=== PATIENT | female | born 1995 | race Caucasian/White ===

== ENCOUNTER 2020-03-23 08:37 | Emergency (ER) | payer BC, SELFPAY ==
[2020-03-23 08:41] VITALS: BP 184/106; PULSE 119; RESP 16; TEMP 36.7; O2SAT 99; BMI 40.3
--- NOTE | 2020-03-23 08:59 | ED_ITS ---
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 Patient did not reported at work. Patient said the first day she was fine and then the next day started hurting worse and is progressively worsened and she continued to work for a week and and made it worse. Said it hurts for her to bend twist left role in bed get out of bed. Pain she said radiates down her right leg to her mid thigh. [facility] said her right leg was 2 inches shorter is told her hip was out of place and put her hip back in place. Patient did ambulate the whole time without difficulty. 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) Onset (ago): day(s) Timing: constant and progressively worsening Severity: moderate Pain scale (0-10): 6 Similar Symptoms Previously: No Quality: burning and sharp Radiation: right upper leg Exacerbating factors: movement, sitting upright and walking Relieving factors: immobilization Context: while lifting and turning/twisting Associated symptoms: Reports no associated symptoms; Deny abdominal pain, chills, fever(s), nausea or vomiting Treatments prior to arrival: other (Chiropractic) Work related injury: No Review of Systems Const: Denies: fever, chills or body aches Eyes: Denies: change in vision or blurry vision ENMT: Denies: throat pain or nasal congestion Card: Reports: other (Hypertension); Denies: chest pain or shortness of breath on exertion Resp: Denies: shortness of breath, productive cough or non-productive cough GI: Denies: abdominal pain, nausea or vomiting Musc: Reports: back pain; Denies: extremity pain Skin/Breast: Denies: rash Neuro: Denies: headache Psych: Denies: anxiety or depression Sabino/Lymph: Denies: easy bruising PFSH ED PFSH: Social History Smoking and tobacco status: current every day smoker Physical Exam Const: COMMON NORMALS: no apparent distress, average body habitus and oriented x3 HENMT: COMMON NORMALS: normocephalic HEAD & SCALP: normal to inspection and normocephalic FACE & SINUS: normal facial exam Eye: COMMON NORMALS: conjunctivae normal GENERAL EYE: normal appearance of both eyes CONJUNCTIVA: Yes conjunctivae normal Neck/C-Spine: COMMON NORMALS: no JVD Chest: COMMONS NORMALS: inspection of chest normal Resp: COMMON NORMALS: normal respiratory effort and clear to auscultation bilaterally AUSCULTATION: clear to auscultation bilaterally Cardio: COMMON NORMALS: no JVD, regular rate and regular rhythm RATE: regular rate RHYTHM: regular rhythm GI: COMMON NORMALS: normal to inspection, nondistended, normoactive bowel sounds : COMMON NORMALS: Yes no CVA tenderness BLADDER/KIDNEY EXAM: Yes no CVA tenderness Back/Pelvis: COMMON NORMALS: no CVA tenderness THORACIC SPINE/UPPER BACK: Yes normal to inspection LUMBAR SPINE/LOWER BACK: Yes normal to inspection and Yes straight leg raise positive right Straight leg raise positive details right: other (Positive with cross leg raise and bilateral leg raise to at 30 degrees) PELVIS: Yes other (Neuro is intact distal any radiates down to mid thigh long sciatic) SACROILIAC JOINTS: Yes SI joints normal COCCYX: other (Neuro is intact distal any radiates down to mid thigh long sciatic) Extremity: COMMON NORMALS: normal to inspection and full ROM Neuro: COMMON NORMALS: oriented x3 Course Vital Signs: Vital signs: Vital Signs Temperature 98.1 F 03/23/20 08:41 Pulse Rate 119 H 03/23/20 08:41 Respiratory Rate 16 03/23/20 08:41 Blood Pressure 184/106 03/23/20 08:41 Pulse Oximetry 99 03/23/20 08:41 Discharge Plan Discharge Patient Disposition: Home, Self-Care Clinical Impression: Strain of lumbar region Qualifiers: Encounter type: initial encounter Qualified Code(s): S39.012A - Strain of muscle, fascia and tendon of lower back, initial encounter Condition: Stable Prescriptions: New Medrol (Melquiades) 4 mg tablets,dose pack See Rx Instructions .ROUTE .COMPLEX Qty: 21 RF: 0 cyclobenzaprine 5 mg tablet 5 mg PO TID PRN (Reason: muscle spasm) Qty: 10 RF: 0 Discharge Orders: Discharge Order (Routine); Ordered 03/23/20 Ordered By: Sky Pritchett Referrals: Amadeo Clifford FNP-C [Primary Care Provider] - Chapin Yun APN [Family Provider] - Discharge Diet: Usual diet Discharge Activity: Increase activity as tolerated Patient Instructions: Low Back Strain (ED), Core Strengthening Exercises (GEN) Activity Restrictions/Additional Instructions: Follow-up with medical provider as directed. Take medications as prescribed. Return to the ER or your medical provider if condition worsens. Please read and understand discharge instructions. If any questions ask please. 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
[2020-03-23 09:25] VITALS: RESP 16; O2SAT 98
== END 2020-03-23 09:25 | disposition home or self-care (01) ==
LOC: ER 09:03
PROVIDERS: Emergency Provider Nurse Practitioner Family; Family Provider Nurse Practitioner Family; PCP Nurse Practitioner
DX: S39.012A Strain of muscle, fascia and tendon of lower back, initial encounter (principal); X50.9XXA Other and unspecified overexertion or strenuous movements or postures, initial encounter; Y93.F2 Activity, caregiving, lifting; F17.210 Nicotine dependence, cigarettes, uncomplicated
CPT/HCPCS: 12345; 99281; 99282

== ENCOUNTER 2020-04-03 12:36 | Outpatient (RCR) | payer OTHER, SELFPAY | END 2020-04-19 23:59 | disposition home or self-care (01) | LOC: SPT 12:36 | PROVIDERS: PCP Nurse Practitioner Family; Referring Provider Family Medicine; Visit Provider Family Medicine | DX: S33.6XXD Sprain of sacroiliac joint, subsequent encounter (principal); X58.XXXD Exposure to other specified factors, subsequent encounter | CPT/HCPCS: 97110; 97161; G0283 ==

== ENCOUNTER 2020-04-20 06:00 | Outpatient (RCR) | payer OTHER, SELFPAY | END 2020-05-19 23:59 | disposition home or self-care (01) | LOC: SPT 06:00 | PROVIDERS: PCP Nurse Practitioner Family; Referring Provider Family Medicine; Visit Provider Family Medicine | DX: S33.6XXD Sprain of sacroiliac joint, subsequent encounter (principal); X58.XXXD Exposure to other specified factors, subsequent encounter | CPT/HCPCS: 97110; G0283 ==

== ENCOUNTER 2020-05-06 14:25 | Outpatient (CLI) | payer OTHER, SELFPAY ==
--- NOTE | 2020-05-06 14:30 | MRR_ITS ---
PROCEDURE INFORMATION: Exam: MR Lumbar Spine Without Contrast. 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 . . TECHNIQUE: Imaging protocol: Multiplanar magnetic resonance images of the lumbar spine without intravenous contrast. COMPARISON: No relevant prior studies available. FINDINGS: Vertebrae: Unremarkable. Spinal cord: Normal signal. No cord compression. L1-L2: No significant disc disease. No significant spinal canal stenosis. No neural foraminal stenosis. L2-L3: No significant disc disease. No significant spinal canal stenosis. No neural foraminal stenosis. L3-L4: No significant disc disease. No significant spinal canal stenosis. No neural foraminal stenosis. L4-L5: Minimal disc bulge. No significant spinal canal stenosis. No neural foraminal stenosis. L5-S1: No significant disc disease. No significant spinal canal stenosis. No neural foraminal stenosis. Soft tissues: Unremarkable. MR/MR lumbar spine wo con* [id number] IMPRESSION: No acute abnormality.
== END 2020-05-06 14:26 | disposition home or self-care (01) ==
LOC: RADSHAW 14:28
PROVIDERS: PCP Nurse Practitioner Family; Visit Provider Family Medicine
DX: M51.06 Intervertebral disc disorders with myelopathy, lumbar region (principal); M54.5 Low back pain
CPT/HCPCS: 72148

== ENCOUNTER 2021-05-19 14:18 | Inpatient (IN) | payer BC, SELFPAY ==
[2021-05-19 15:42] VITALS: BP 150/84; PULSE 111; RESP 18; TEMP 37; O2SAT 99; BMI 42.5
--- NOTE | 2021-05-19 18:32 | ED_ITS ---
Documented by User: JOSHUA Baird 05/19/21 23:19 HPI - Nausea/Vomiting/Diarrhea General: Chief complaint: Nausea/Vomiting/Diarrhea Stated complaint: NAUSEA/VOMITING Time Seen by Provider: 05/19/21 18:28 History of Present Illness: HPI Narrative: Patient is a 26-year-old female comes to the ED with nausea and vomiting. Patient says symptoms started on Monday. She has not been able to tolerate any p.o. food or fluids since Monday. She says over the last 24 hours she has not really had anything to drink or eat. She denies any bowel movements for the past 3 days. She has some generalized abdominal pain that she describes as a pressure in her abdomen. Denies any fever, chills, chest pain, shortness of breath, diarrhea, blood in the stool, dysuria or hematuria. She denies any current vaginal bleeding and says her last period was 3 months ago but states she has PCOS so her periods are irregular. Associated nausea: Yes Associated symtoms: Reports nausea; Denies change in vision, chest pain, dysuria, fatigue, headache(s) or palpitations Review of Systems Const: Denies: fever(s), chills or fatigue Eyes: Denies: change in vision or eye discomfort ENMT: Denies: throat pain, odynophagia, nasal discharge or nasal congestion Card: Denies: chest pain, palpitations, edema, swelling of feet/ankles, dyspnea on exertion or orthopnea Resp: Denies: dyspnea, productive cough or non-productive cough GI: Reports: abdominal pain (general Pressure), nausea and vomiting; Denies: diarrhea, constipation or hematochezia : Denies: flank pain, dysuria or hematuria Musc: Denies: neck pain, back pain or extremity swelling Skin/Breast: Denies: rash or new lesions Neuro: Denies: headache(s), numbness in extremities or weakness in extremities PFSH ED PFSH: Medical History Anxiety Asthma PCOS (polycystic ovarian syndrome) Surgical History H/O oophorectomy Family History (Updated 05/19/21 @ 23:55 by Lelia Weeks MD) Other Cancer Social History Smoking and tobacco status: current every day smoker Female Reproductive History: Date of last menstrual period: 03/17/21 Physical Exam Const: COMMON NORMALS: no acute distress, patient oriented x3 and alert GENERAL APPEARANCE: cooperative and comfortable NUTRITIONAL APPEARANCE: obese HENMT: COMMON NORMALS: normocephalic HEAD & SCALP: normocephalic MOUTH: moist mucous membranes abnormal Details: parched THROAT: posterior oropharynx normal and uvula midline Eye: COMMON NORMALS: Equal, round and reactive pupils present PUPIL: Yes Equal, round and reactive pupils present Neck/C-Spine: COMMON NORMALS: supple GENERAL: Yes normal visual inspection Resp: COMMON NORMALS: normal respiratory effort, No retractions, No use of accessory muscles and clear to auscultation bilaterally AUSCULTATION: clear to auscultation bilaterally Cardio: COMMON NORMALS: regular rate, regular rhythm, S1 normal heart sound present, S2 normal heart sound present, No gallops present (Cardio), No clicks present (Cardio), No murmurs present (Cardio) and Peripheral pulses 2+ throughout RATE: regular rate RHYTHM: regular rhythm HEART SOUNDS: S1 normal heart sound present and S2 normal heart sound present PERIPHERAL PULSES: Peripheral pulses 2+ throughout GI: COMMON NORMALS: Normal to inspection, nondistended, normoactive bowel sounds present, Soft to palpation and no masses PALPATION: Yes Soft to palpation and Yes Tenderness to palpation present (GI) (Mild generalized tenderness) : COMMON NORMALS: Yes no CVA tenderness BLADDER/KIDNEY EXAM: Yes no CVA tenderness Back/Pelvis: COMMON NORMALS: no CVA tenderness Extremity: COMMON NORMALS: normal to inspection Neuro: COMMON NORMALS: patient oriented x3 and moves all extremities SENSORIUM/ORIENTATION: Yes alert Skin: GENERAL SKIN EXAM: dry skin Course Vital Signs: Vital signs: Vital Signs Temperature 98.2 F 05/20/21 07:34 Pulse Rate 75 05/20/21 07:34 Respiratory Rate 17 05/20/21 07:34 Blood Pressure 122/80 05/20/21 07:34 Pulse Oximetry 96 05/20/21 07:34 MDM - Nausea/Vomiting/Diarrhea MDM Narrative: Medical decision making narrative: Patient is a 26-year-old female comes to the ED with nausea and vomiting. Patient says she has not been able to keep any food or fluids down for the past 3 days. Patient appears nontoxic and is in no acute distress or pain. She has some dry oral mucous membranes and some very mild generalized tenderness of the abdomen. White blood cell count 15.2 and creatinine 3.8. Patient says she has no history of any kidney issues or problems. The rest of CBC CMP and UA were unremarkable. hCG negative. CT of abdomen pelvis showed no acute findings. Patient was given 2 L of IV fluids and Zofran and her nausea improved. I went to talk to Dr. Nunes about patient case and I thought patient should be admitted due to the very elevated creatinine level. He agreed and will be taking over patient care to get patient admitted into the hospital. Lab Data: Attestation: I reviewed the patient's lab results. Labs: Lab Results 05/19/21 05/19/21 05/19/21 Range/Units 17:12 18:20 18:50 WBC 15.2 H (4.0-10.0) 10^3/ uL RBC 5.20 (4.1-5.3) 10^6/u L Hgb 14.6 (11.5-15.3) g/dL Hct 44.6 (37.0-47.0) % MCV 85.8 (81-99) fL MCH 28.1 (28.0-34.0) pg MCHC 32.7 (30.0-36.0) g/dL RDW 13.7 (12.1-15.1) % Plt Count 289 (130-400) 10^3/c mm MPV 11.0 H (7.4-10.4) fL Neut % (Auto) 70.6 % Lymph % (Auto) 22.5 % [place] % (Auto) 5.5 % Eos % (Auto) 0.7 % Baso % (Auto) 0.3 % Neut # (Auto) 10.72 H (1.8-7.7) 10^3/u L Lymph # (Auto) 3.4 (0.8-4.8) 10^3/u L [place] # (Auto) 0.8 (0.2-0.9) 10^3/u L Eos # (Auto) 0.1 (0.0-0.8) 10^3/u L Baso # (Auto) 0.1 (0.0-0.1) 10^3/u L Nucleated RBC % (a uto) 0 % Nucleated RBCs # 0.0 /100WBC Sodium (136-145) mmol/L Potassium (3.5-5.1) mmol/L Chloride (98-107) mmol/L Carbon Dioxide (22-29) mmol/L Anion Gap (5-19) BUN (6-20) mg/dL Creatinine (0.5-0.9) mg/dL GFR Calculation (90-130) mL/min Glucose (65-115) mg/dL Calculated Osmolal ity (285-295) mOsm/k g Lactic Acid (0.5-2.2) mmol/L Calcium (8.5-10.5) mg/dL Total Bilirubin (0.15-1.2) mg/dL AST (0-32) U/L ALT (0-33) U/L Alkaline Phosphata se (35-105) IU/L Total Protein (6.6-8.7) g/dL Albumin (3.5-5.2) g/dL Globulin (1.3-4.6) g/dL Lipase (13-60) U/L HCG, Qual (Negative) Urine Color Yellow (Yellow) Urine Appearance Sl hazy (CLEAR) Urine pH 5 (5-7) Ur Specific Gravit y 1.015 (1.005-1.030) Urine Protein Neg (Negative) Urine Glucose (UA) Norm (Normal) Urine Ketones 1+ H (Negative) Urine Blood Neg (Negative) Urine Nitrate Negative (Negative) Urine Bilirubin Neg (Negative) Urine Urobilinogen Norm (Negative) mg/dL Ur Leukocyte Ambar ase Negative (Negative) Urine RBC 0-4 H (0-2) /hpf Urine WBC 0-4 H (0-5) /hpf Ur Squamous Epith Cells 25-40 H (0-5) /hpf Amorphous Sediment Not Reportable Urine Bacteria None (NONE) /hpf Urine Opiates Scre en Negative (Negative) ng/mL Ur Barbiturates Sc reen Negative (Negative) ng/mL Ur Phencyclidine S crn Negative (Negative) ng/mL Ur Amphetamines Sc reen Negative (Negative) ng/mL U Benzodiazepines Scrn Negative (Negative) ng/mL Urine Cocaine Scre en Negative (Negative) ng/mL U Marijuana (THC) Screen Negative (Negative) ng/mL 05/19/21 05/19/21 05/19/21 Range/Units 18:50 18:50 18:50 WBC (4.0-10.0) 10^3/ uL RBC (4.1-5.3) 10^6/u L Hgb (11.5-15.3) g/dL Hct (37.0-47.0) % MCV (81-99) fL MCH (28.0-34.0) pg MCHC (30.0-36.0) g/dL RDW (12.1-15.1) % Plt Count (130-400) 10^3/c mm MPV (7.4-10.4) fL Neut % (Auto) % Lymph % (Auto) % [place] % (Auto) % Eos % (Auto) % Baso % (Auto) % Neut # (Auto) (1.8-7.7) 10^3/u L Lymph # (Auto) (0.8-4.8) 10^3/u L [place] # (Auto) (0.2-0.9) 10^3/u L Eos # (Auto) (0.0-0.8) 10^3/u L Baso # (Auto) (0.0-0.1) 10^3/u L Nucleated RBC % (a uto) % Nucleated RBCs # /100WBC Sodium 136 (136-145) mmol/L Potassium 4.6 (3.5-5.1) mmol/L Chloride 101 (98-107) mmol/L Carbon Dioxide 21 L (22-29) mmol/L Anion Gap 18.6 (5-19) BUN 31 H (6-20) mg/dL Creatinine 3.8 H (0.5-0.9) mg/dL GFR Calculation 14.1 L (90-130) mL/min Glucose 78 (65-115) mg/dL Calculated Osmolal ity 287 (285-295) mOsm/k g Lactic Acid 1.4 (0.5-2.2) mmol/L Calcium 9.2 (8.5-10.5) mg/dL Total Bilirubin 0.2 (0.15-1.2) mg/dL AST 13 (0-32) U/L ALT 15 (0-33) U/L Alkaline Phosphata se 116 H (35-105) IU/L Total Protein 8.1 (6.6-8.7) g/dL Albumin 4.2 (3.5-5.2) g/dL Globulin 3.9 (1.3-4.6) g/dL Lipase 20 (13-60) U/L HCG, Qual Negative (Negative) Urine Color (Yellow) Urine Appearance (CLEAR) Urine pH (5-7) Ur Specific Gravit y (1.005-1.030) Urine Protein (Negative) Urine Glucose (UA) (Normal) Urine Ketones (Negative) Urine Blood (Negative) Urine Nitrate (Negative) Urine Bilirubin (Negative) Urine Urobilinogen (Negative) mg/dL Ur Leukocyte Ambar ase (Negative) Urine RBC (0-2) /hpf Urine WBC (0-5) /hpf Ur Squamous Epith Cells (0-5) /hpf Amorphous Sediment Urine Bacteria (NONE) /hpf Urine Opiates Scre en (Negative) ng/mL Ur Barbiturates Sc reen (Negative) ng/mL Ur Phencyclidine S crn (Negative) ng/mL Ur Amphetamines Sc reen (Negative) ng/mL U Benzodiazepines Scrn (Negative) ng/mL Urine Cocaine Scre en (Negative) ng/mL U Marijuana (THC) Screen (Negative) ng/mL Imaging Data^: CT Abd/Pel: Attestation: I personally reviewed and interpreted this imaging study as follows: Radiologist's impression: [address] [address] [address] Scan Report Signed Patient: Desire Hopkins Unit #: [id number] : 1995 Age/Sex: 26 / F ADM Date: 05/19/21 Loc: ER Room/Bed: Attending Dr: Ordering Provider/Ordering MD: Jay Saez Date of Service: 05/19/21 Procedure(s): CT abdomen pelvis con [id number] Accession Number(s): [id number] Report Number: [id number] PROCEDURE INFORMATION: Exam: CT Abdomen And Pelvis Without Contrast Exam date and time: 05/19/2021 6:40 PM Age: 26 years old Clinical indication: Nausea and vomiting; Abdominal pain; Generalized; Prior surgery; Surgery type: Left ovary and tube; Additional info: Nausea/vomiting, generalized abdominal pain. TECHNIQUE: Imaging protocol: Computed tomography of the abdomen and pelvis without contrast. Radiation optimization: All CT scans at this facility use at least one of these dose optimization techniques: automated exposure control; mA and/or kV adjustment per patient size (includes targeted exams where dose is matched to clinical indication); or iterative reconstruction. COMPARISON: CT abdomen pelvis w con* [id number] 07/09/2015 9:18 AM RADIATION DOSE METRICS: Total DLP (mGy-cm): 1981.38 FINDINGS: Lungs: Right lower lobe atelectasis. Liver: Normal. No mass. Gallbladder and bile ducts: Normal. No calcified stones. No ductal dilation. Pancreas: Normal. No ductal dilation. Spleen: Normal. No splenomegaly. Adrenal glands: Normal. No mass. Kidneys and ureters: Normal. No hydronephrosis. Stomach and bowel: Unremarkable. No obstruction. No mucosal thickening. Appendix: No evidence of appendicitis. Intraperitoneal space: Unremarkable. No free air. No significant fluid collection. Vasculature: Unremarkable. No abdominal aortic aneurysm. Lymph nodes: Unremarkable. No enlarged lymph nodes. Urinary bladder: Unremarkable as visualized. Reproductive: Unremarkable as visualized. Bones/joints: Unremarkable. No acute fracture. Soft tissues: Unremarkable. CT/CT abdomen pelvis con [id number] IMPRESSION: Negative for acute inflammatory process in the abdomen or pelvis Radiation Dose CTDIVOL = (mGy): DLP = 1981.38 (mGy-cm) Dictated By: Dino Coreas MD Signed By: Dino Coreas MD Signed Date/Time: 05/19/212039 DD/ 38 Discharge Plan Discharge Patient Disposition: Admitted As Inpatient Admit Provider: Lelia Weeks Clinical Impression: CATINA (acute kidney injury), Gastroenteritis Condition: Stable Coding Level of Care Code ED Commercial Or Institutional Cleaner for Chg Fwd Exam Comprehensive Documented by User: Williams Nunes MD 05/20/21 11:16 HPI - Nausea/Vomiting/Diarrhea General: Chief complaint: Nausea/Vomiting/Diarrhea Stated complaint: NAUSEA/VOMITING Time Seen by Provider: 05/19/21 18:28 [facility] ED PFSH: Medical History Anxiety Asthma PCOS (polycystic ovarian syndrome) Surgical History H/O oophorectomy Family History (Updated 05/19/21 @ 23:55 by Lelia Weeks MD) Other Cancer Social History Smoking and tobacco status: current every day smoker Course 2 Vital Signs: Vital signs: Vital Signs Temperature 98.2 F 05/20/21 07:34 Pulse Rate 75 05/20/21 07:34 Respiratory Rate 17 05/20/21 07:34 Blood Pressure 122/80 05/20/21 07:34 Pulse Oximetry 96 05/20/21 07:34 MDM - Nausea/Vomiting/Diarrhea Lab Data: Labs: Lab Results 05/19/21 05/19/21 05/19/21 Range/Units 17:12 18:20 18:50 WBC 15.2 H (4.0-10.0) 10^3/ uL RBC 5.20 (4.1-5.3) 10^6/u L Hgb 14.6 (11.5-15.3) g/dL Hct 44.6 (37.0-47.0) % MCV 85.8 (81-99) fL MCH 28.1 (28.0-34.0) pg MCHC 32.7 (30.0-36.0) g/dL RDW 13.7 (12.1-15.1) % Plt Count 289 (130-400) 10^3/c mm MPV 11.0 H (7.4-10.4) fL Neut % (Auto) 70.6 % Lymph % (Auto) 22.5 % [place] % (Auto) 5.5 % Eos % (Auto) 0.7 % Baso % (Auto) 0.3 % Neut # (Auto) 10.72 H (1.8-7.7) 10^3/u L Lymph # (Auto) 3.4 (0.8-4.8) 10^3/u L [place] # (Auto) 0.8 (0.2-0.9) 10^3/u L Eos # (Auto) 0.1 (0.0-0.8) 10^3/u L Baso # (Auto) 0.1 (0.0-0.1) 10^3/u L Nucleated RBC % (a uto) 0 % Nucleated RBCs # 0.0 /100WBC Sodium (136-145) mmol/L Potassium (3.5-5.1) mmol/L Chloride (98-107) mmol/L Carbon Dioxide (22-29) mmol/L Anion Gap (5-19) BUN (6-20) mg/dL Creatinine (0.5-0.9) mg/dL GFR Calculation (90-130) mL/min Glucose (65-115) mg/dL Calculated Osmolal ity (285-295) mOsm/k g Lactic Acid (0.5-2.2) mmol/L Calcium (8.5-10.5) mg/dL Total Bilirubin (0.15-1.2) mg/dL AST (0-32) U/L ALT (0-33) U/L Alkaline Phosphata se (35-105) IU/L Total Protein (6.6-8.7) g/dL Albumin (3.5-5.2) g/dL Globulin (1.3-4.6) g/dL Lipase (13-60) U/L HCG, Qual (Negative) Urine Color Yellow (Yellow) Urine Appearance Sl hazy (CLEAR) Urine pH 5 (5-7) Ur Specific Gravit y 1.015 (1.005-1.030) Urine Protein Neg (Negative) Urine Glucose (UA) Norm (Normal) Urine Ketones 1+ H (Negative) Urine Blood Neg (Negative) Urine Nitrate Negative (Negative) Urine Bilirubin Neg (Negative) Urine Urobilinogen Norm (Negative) mg/dL Ur Leukocyte Ambar ase Negative (Negative) Urine RBC 0-4 H (0-2) /hpf Urine WBC 0-4 H (0-5) /hpf Ur Squamous Epith Cells 25-40 H (0-5) /hpf Amorphous Sediment Not Reportable Urine Bacteria None (NONE) /hpf Urine Opiates Scre en Negative (Negative) ng/mL Ur Barbiturates Sc reen Negative (Negative) ng/mL Ur Phencyclidine S crn Negative (Negative) ng/mL Ur Amphetamines Sc reen Negative (Negative) ng/mL U Benzodiazepines Scrn Negative (Negative) ng/mL Urine Cocaine Scre en Negative (Negative) ng/mL U Marijuana (THC) Screen Negative (Negative) ng/mL 05/19/21 05/19/21 05/19/21 Range/Units 18:50 18:50 18:50 WBC (4.0-10.0) 10^3/ uL RBC (4.1-5.3) 10^6/u L Hgb (11.5-15.3) g/dL Hct (37.0-47.0) % MCV (81-99) fL MCH (28.0-34.0) pg MCHC (30.0-36.0) g/dL RDW (12.1-15.1) % Plt Count (130-400) 10^3/c mm MPV (7.4-10.4) fL Neut % (Auto) % Lymph % (Auto) % [place] % (Auto) % Eos % (Auto) % Baso % (Auto) % Neut # (Auto) (1.8-7.7) 10^3/u L Lymph # (Auto) (0.8-4.8) 10^3/u L [place] # (Auto) (0.2-0.9) 10^3/u L Eos # (Auto) (0.0-0.8) 10^3/u L Baso # (Auto) (0.0-0.1) 10^3/u L Nucleated RBC % (a uto) % Nucleated RBCs # /100WBC Sodium 136 (136-145) mmol/L Potassium 4.6 (3.5-5.1) mmol/L Chloride 101 (98-107) mmol/L Carbon Dioxide 21 L (22-29) mmol/L Anion Gap 18.6 (5-19) BUN 31 H (6-20) mg/dL Creatinine 3.8 H (0.5-0.9) mg/dL GFR Calculation 14.1 L (90-130) mL/min Glucose 78 (65-115) mg/dL Calculated Osmolal ity 287 (285-295) mOsm/k g Lactic Acid 1.4 (0.5-2.2) mmol/L Calcium 9.2 (8.5-10.5) mg/dL Total Bilirubin 0.2 (0.15-1.2) mg/dL AST 13 (0-32) U/L ALT 15 (0-33) U/L Alkaline Phosphata se 116 H (35-105) IU/L Total Protein 8.1 (6.6-8.7) g/dL Albumin 4.2 (3.5-5.2) g/dL Globulin 3.9 (1.3-4.6) g/dL Lipase 20 (13-60) U/L HCG, Qual Negative (Negative) Urine Color (Yellow) Urine Appearance (CLEAR) Urine pH (5-7) Ur Specific Gravit y (1.005-1.030) Urine Protein (Negative) Urine Glucose (UA) (Normal) Urine Ketones (Negative) Urine Blood (Negative) Urine Nitrate (Negative) Urine Bilirubin (Negative) Urine Urobilinogen (Negative) mg/dL Ur Leukocyte Ambar ase (Negative) Urine RBC (0-2) /hpf Urine WBC (0-5) /hpf Ur Squamous Epith Cells (0-5) /hpf Amorphous Sediment Urine Bacteria (NONE) /hpf Urine Opiates Scre en (Negative) ng/mL Ur Barbiturates Sc reen (Negative) ng/mL Ur Phencyclidine S crn (Negative) ng/mL Ur Amphetamines Sc reen (Negative) ng/mL U Benzodiazepines Scrn (Negative) ng/mL Urine Cocaine Scre en (Negative) ng/mL U Marijuana (THC) Screen (Negative) ng/mL Discharge Plan Discharge Patient Disposition: Admitted As Inpatient Admit Provider: Lelia Weeks Clinical Impression: CATINA (acute kidney injury), Gastroenteritis Condition: Stable Coding Level of Care Code ED Commercial Or Institutional Cleaner for Kristineg Fwd Exam Comprehensive
[2021-05-19 18:37] VITALS: BP 153/94; PULSE 108; RESP 16; O2SAT 100
--- NOTE | 2021-05-19 18:40 | CTR_ITS ---
PROCEDURE INFORMATION: Exam: CT Abdomen And Pelvis Without Contrast Exam date and time: 05/19/2021 6:40 PM Age: 26 years old Clinical indication: Nausea and vomiting; Abdominal pain; Generalized; Prior surgery; Surgery type: Left ovary and tube; Additional info: Nausea/vomiting, generalized abdominal pain. TECHNIQUE: Imaging protocol: Computed tomography of the abdomen and pelvis without contrast. Radiation optimization: All CT scans at this facility use at least one of these dose optimization techniques: automated exposure control; mA and/or kV adjustment per patient size (includes targeted exams where dose is matched to clinical indication); or iterative reconstruction. COMPARISON: CT abdomen pelvis w con* [id number] 07/09/2015 9:18 AM RADIATION DOSE METRICS: Total DLP (mGy-cm): 1980.38 FINDINGS: Lungs: Right lower lobe atelectasis. Liver: Normal. No mass. Gallbladder and bile ducts: Normal. No calcified stones. No ductal dilation. Pancreas: Normal. No ductal dilation. Spleen: Normal. No splenomegaly. Adrenal glands: Normal. No mass. Kidneys and ureters: Normal. No hydronephrosis. Stomach and bowel: Unremarkable. No obstruction. No mucosal thickening. Appendix: No evidence of appendicitis. Intraperitoneal space: Unremarkable. No free air. No significant fluid collection. Vasculature: Unremarkable. No abdominal aortic aneurysm. Lymph nodes: Unremarkable. No enlarged lymph nodes. Urinary bladder: Unremarkable as visualized. Reproductive: Unremarkable as visualized. Bones/joints: Unremarkable. No acute fracture. Soft tissues: Unremarkable. CT/CT abdomen pelvis con [id number] IMPRESSION: Negative for acute inflammatory process in the abdomen or pelvis Radiation Dose CTDIVOL = (mGy): DLP = 1981.38 (mGy-cm)
[2021-05-19 19:00] LABS: Basophils # 0.1 10^3/uL (0.0-0.1); Basophils % 0.3 %; Eosinophils # 0.1 10^3/uL (0.0-0.8); Eosinophils % 0.7 %; Hematocrit 44.6 % (37.0-47.0); Hemoglobin 14.6 g/dL (11.5-15.3); Lymphocytes # 3.4 10^3/uL (0.8-4.8); Lymphocytes % 22.5 %; Mean Corpuscular HGB Conc 32.7 g/dL (30.0-36.0); Mean Corpuscular Hemoglobin 28.1 pg (28.0-34.0); Mean Corpuscular Volume 85.8 fL (81-99); Monocytes # 0.8 10^3/uL (0.2-0.9); Monocytes % 5.5 %; Neutrophils # 10.72 10^3/uL (1.8-7.7); Neutrophils % 70.6 %; Nucleated Red Blood Cells % 0 %; Platelet Count 289 10^3/cmm (130-400); Red Cell Distribution Width 13.7 % (12.1-15.1); White Blood Count 15.2 10^3/uL (4.0-10.0)
[2021-05-19] MEDS: ondansetron 2 mg/ML SDV 2 mL 4 MG IVP (19:09)
[2021-05-19] MEDS: sodium chloride 0.9% 1,000 ML 999 ML IV ×2 (19:10→22:22)
[2021-05-19 19:22] LABS: Alanine Aminotransferase 15 U/L (0-33); Albumin Level 4.2 g/dL (3.5-5.2); Alkaline Phosphatase 116 IU/L (35-105); Anion Gap 18.6 (5-19); Aspartate Amino Transferase 13 U/L (0-32); Blood Urea Nitrogen 31 mg/dL (6-20); Calcium 9.2 mg/dL (8.5-10.5); Carbon Dioxide 21 mmol/L (22-29); Chloride 101 mmol/L (98-107); Globulin 3.9 g/dL (1.3-4.6); Glomerular Filtration Rate 14.1 mL/min (90-130); Glucose 78 mg/dL (65-115); Lipase 20 U/L (13-60); Osmolality Calculated 287 mOsm/kg (285-295); Potassium 4.6 mmol/L (3.5-5.1); Sodium 136 mmol/L (136-145); Total Bilirubin 0.2 mg/dL (0.15-1.2); Total Protein 8.1 g/dL (6.6-8.7)
[2021-05-19 19:42] LABS: HCG, Serum Qual Negative (Negative)
[2021-05-19 19:43] LABS: Add Urine Microscopic? YES; Bilirubin Urine Neg (Negative); Blood Urine Neg (Negative); Glucose Urine UA Norm (Normal); Ketones Urine 1+ (Negative); Leukocyte Esterase Urine Negative (Negative); Nitrate Urine Negative (Negative); Protein Urine Neg (Negative); RBC Urine 0-4 /hpf (0-2); Specific Gravity, Urine 1.015 (1.005-1.030); Squamous Epithelial Cell Urine 25-40 /hpf (0-5); Urine Appearance SL Hazy (CLEAR); Urine Color Yellow (Yellow); Urobilinogen Urine Norm (Negative); WBC Urine 0-4 /hpf (0-5); pH Urine 5 (5-7)
[2021-05-19 20:48] VITALS: BP 120/68; PULSE 92; RESP 18; O2SAT 94
[2021-05-19 21:45] VITALS: BP 123/82; PULSE 78; RESP 16; O2SAT 95
--- NOTE | 2021-05-19 22:23 | PC.NURSE ---
Iv to left ac dc'd. it was not infiltrated however wouldnt flush. I initiated another IV in right ac 22g
--- NOTE | 2021-05-19 22:25 | P.HP_ITS ---
Providers/Chief Complaint Primary Care Provider: Court Samson APN Chief Complaint: NAUSEA/VOMITING History of Present Illness Desire Hopkins is a 26 young female with no known past medical history, presenting today with chief complaint of recurrent nausea vomiting. Patient is stating that on Monday she ate anderson, ice cream cake from her hospital cafeteria. On Monday she started experiencing nausea and vomiting, she did not notice any fever, diarrhea, blood in stool. She tried to eat chicken noodle but could not keep it down. In total she has had 6-7 episodes of emesis. She is denying abdominal pain, recent use of antibiotics, recent camping, traveling sick contacts. She is denying marijuana use or any other recreational drug use. She smokes 1 pack/day, denies alcohol abuse. Diagnostics in the ER revealed normal CBC, BMP revealed CATINA, CT abdomen pelvis did not reveal any acute pathological findings she is currently being admitted for IV fluid hydration because of CATINA and recurrent nausea vomiting. Review of Systems Narrative: Review of symptoms: No fever Positive for lethargy and fatigue Dehydration No chest pain No shortness of breath No fever No productive cough No abdominal pain Endorses constipation No skin changes No joint swelling Positive anxiety No easy bleeding No headache Medications/Allergies Home Medications Medication Instructions Recorded Confirmed Last Taken Type cyclobenzaprine 5 mg PO TID PRN #10 tab 03/23/20 04/28/20 Unknown Rx ibuprofen 800 mg tablet 800 mg PO Q8H 03/26/20 04/28/20 Unknown History Allergies Allergy/AdvReac Type Severity Reaction Status Date / Time No Known Allergies Allergy Verified 05/19/21 15:48 PFSH Acute PFSH: Medical History Anxiety Asthma PCOS (polycystic ovarian syndrome) Surgical History H/O oophorectomy Family History (Updated 05/19/21 @ 23:55 by Lelia Weeks MD) Other Cancer Social History Smoking and tobacco status: current every day smoker Female Reproductive History: Date of last menstrual period: 03/17/21 Vitals/I&O/Wt Last Vital Signs Temp 98.6 F 05/19/21 15:42 Pulse 78 05/19/21 21:45 Resp 16 05/19/21 21:45 BP 123/82 05/19/21 21:45 Pulse Ox 95 05/19/21 21:45 05/19/21 05/19/21 05/19/21 06:59 14:59 22:59 Intake Total 1000 / 1000 Balance 1000 / 1000 Weight last 48 hrs Weight 127.006 kg Physical Exam Narrative: EXAM NARRATIVE: Young morbidly obese female Clinically looks slightly dehydrated No active emesis S1, S2 sinus rhythm Abdomen soft, distended with obesity nontender no signs of peritonitis Lower extremity no edema gangrene ulcer EOMI, PERRLA Appropriate mood and affect GCS 15 No joint swelling Awake alert oriented x3 Metal lip piercing Data : 05/19/21 18:50 05/19/21 18:50 A&P Assessment and plan (1) Gastroenteritis: Status: Acute (2) CATINA (acute kidney injury): Status: Acute Additional A&P Information Food poisoning/gastroenteritis Recurrent nausea vomiting, patient denies history of THC abuse or diabetes, CT abdomen unremarkable I do suspect her symptoms are related to food poisoning Avoid antibiotics, IV fluid hydration CATINA seems secondary to dehydration, hold NSAIDs, anticipating provement with fluid resuscitation Full liquid diet Full code DVT prophylaxis Heparin Attestations Medical Necessity Statement*: Anticipating stay less than 2 midnights in the hospital needs IV fluid hydration for CATINA Time Spent in Patient Care: 30mins Coding Level of Care Code Acute 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
[2021-05-19 22:28] VITALS: BP 112/62; PULSE 78; RESP 18; O2SAT 98
[2021-05-19 22:41] LABS: Lactic Sepsis W/Reflex 1.4 mmol/L (0.5-2.2)
[2021-05-19 23:44] VITALS: BP 135/80; PULSE 79; RESP 18; O2SAT 96
--- NOTE | 2021-05-19 23:53 | PC.NURSE ---
report to Denice LA
[2021-05-20] VITALS (7 sets, daily range): BP systolic 109–147; BP diastolic 69–96; PULSE 69–84; RESP 17–20; TEMP 36.8–37.1; O2SAT 95–98
[2021-05-20 00:03] LABS: Amphetamines Screen Urine Negative (Negative); Barbiturates Screen Urine Negative (Negative); Benzodiazepines Screen Urine Negative (Negative); Cocaine Screen Urine Negative (Negative); Opiate Screen Urine Negative (Negative); PCP Screen Urine Negative (Negative); THC Screen Urine Negative (Negative)
--- NOTE | 2021-05-20 03:20 | PC.NURSE ---
PATIENTS HOME MEDS HAVE BEEN DOCUMENTED AND PUT IN THE [facility], THEY ARE IN A CLEAR BAG WITH RAINBOWS, FRUIT, AND ANIMALS ON THE BOTTOM SHELF LEFT SIDE.
[2021-05-20] MEDS: sodium chloride 0.9% 1,000 ML 100 ML IV ×2 (06:01→15:23)
[2021-05-20] MEDS: HYDROmorphone 1 mg/mL INJ 1 mL IVP (06:33)
[2021-05-20] MEDS: ondansetron 2 mg/ML SDV 2 mL 4 MG IVP ×2 (06:35→21:39)
[2021-05-20 06:47] LABS: Anion Gap 17.6 (5-19); Blood Urea Nitrogen 30 mg/dL (6-20); Calcium 8.3 mg/dL (8.5-10.5); Carbon Dioxide 17 mmol/L (22-29); Chloride 104 mmol/L (98-107); Glomerular Filtration Rate 15.1 mL/min (90-130); Glucose 86 mg/dL (65-115); Osmolality Calculated 283 mOsm/kg (285-295); Potassium 4.6 mmol/L (3.5-5.1); Sodium 134 mmol/L (136-145)
[2021-05-20] MEDS: nicotine 21 mg Patch 1 PATCH TRANSDERMA (10:19)
--- NOTE | 2021-05-20 10:54 | PC.CHAP ---
Pastoral Care Encounter/Spiritual Assessment Type of Contact [] Declined general farm manager visit [] Patient/Family/Request visit [] Outpatient visit [] Follow-up visit [] Physician referral [] Code/Alert [x] Routine visit [] Staff referral [] Actively dying [] Patient sleeping [] Family support [] [] Out of room [] Palliative care [] [x] Receiving care in room [] Pre-surgical visit [] Trauma [] Long length of stay [] ICU visit [] Other: Relational/Emotional Strength [x] Patient feels connected with others/family/visitors/staff [] Distress [] Loneliness/isolation [] Abandonment Spirituality of Patient [x] Person of Denise [] Attends Scientology of their Denise [x] Believes in Prayer [] Reads Bible or Hindu materials [] There are Spiritual issues to be addressed Quality Review Specialist Interventions [x] Prayer [x] Active listening [x] Non-anxious presence [x] Spiritual/emotional support [] Crisis/trauma care [x] Spiritual counseling [] Bereavement support [] Provided bereavement packet [] Provided Bible/devotional materials [] Provided toy/stuffed animal, coloring book to patient or family member [] Provided Communion [] Anointing/Emmett [] Salvation [x] Completed spiritual assessment [] Other: Impact on Illness or Injury [] Angry [] Fearful [] Anxious [] Often cries [] Exhaustion [] Unable to work [] Unable to attend buddhism [] Unable to walk/stand [] Unable to read [] Unable to drive [] Unable to eat/drink [] Unable to sleep [] Unable to be with family [] Patient intubated [] Other: Summary Jose Francisco has had blood work feels good and is going home soon + 1 family Time spent with patient 10 mins
[2021-05-20 11:57] LABS: Creatine Phosphokinase 40 U/L (26-192)
[2021-05-20 13:40] LABS: SARS Covid-2 Antigen Negative (Negative)
[2021-05-20] MEDS: acetaminophen 325 mg Tablet 650 MG PO (14:28)
--- NOTE | 2021-05-20 17:57 | PM.PN ---
Subjective Subjective: Interval history: Overnight labs and H&P reviewed. Urine output 200 cc charted today. Creatinine unchanged today at 3.6. No fever, hemodynamically stable, no diarrhea, reports slight abdominal pain. 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 Data : 05/19/21 18:50 05/20/21 06:08 A&P Assessment and plan (1) Gastroenteritis: Status: Acute (2) CATINA (acute kidney injury): Status: Acute Additional A&P Information # Acute gastroenteritis Recurrent nausea vomiting, patient denies history of THC abuse or diabetes, CT abdomen unremarkable check COVID rapid Ag may be viral in etiology though would expect improvement in 5 days Symptoms improving today with sym[tomatic treatment continue iv zofran, iv hydration # CATINA likely secondary to dehydration urine lytes, CK , urine creatinine to be checked, though may be clouded since already received NS at this time. check ENMA screen # leukocytois : likely 2/2 dehydartion, recheck with am lab Full code DVT prophylaxis low risk Attestations Medical Necessity Statement*: iv hydration, closely monitor renal function Coding Level of Care Code Acute Overseamer for [facility] Diagnoses Gastroenteritis K52.9 CATINA (acute kidney injury) N17.9
[2021-05-20] MEDS: lidocaine 2% viscous 15 ML, aluminum-mag hydrox-simethicon 30 ML, sucralfate oral liq 1 GM PO (19:01)
[2021-05-20] MEDS: pantoprazole DR 40 mg Tablet PO (19:01)
[2021-05-20 20:24] LABS: Potassium, Radom Urine 16 mmol/L; Urine Creatinine 96 mg/dL (28-217); Urine Random Chloride 84 mmol/L; Urine Random Sodium 92 mmol/L
--- NOTE | 2021-05-20 21:52 | PC.NURSE ---
NAUSEA At first of shift pt was begging for Dr to be called for diet change. Stated had not had any nausea since this morning and is very hungry. Order was received and pt took couple bites of sandwich and became nauseated with vomiting. Medicated with IV Zofran
[2021-05-21] VITALS (7 sets, daily range): BP systolic 100–139; BP diastolic 69–91; PULSE 76–89; RESP 14–17; TEMP 36.9–37.2; O2SAT 95–98
[2021-05-21] MEDS: acetaminophen 325 mg Tablet 650 MG PO (00:36)
[2021-05-21] MEDS: sodium chloride 0.9% 1,000 ML 100 ML IV ×2 (00:37→10:41)
[2021-05-21 04:53] LABS: Basophils % 0.4 %; Eosinophils # 0.2 10^3/uL (0.0-0.8); Eosinophils % 2.1 %; Hematocrit 36.6 % (37.0-47.0); Lymphocytes # 3.1 10^3/uL (0.8-4.8); Lymphocytes % 28.6 %; Mean Corpuscular HGB Conc 32.8 g/dL (30.0-36.0); Mean Corpuscular Hemoglobin 27.7 pg (28.0-34.0); Mean Corpuscular Volume 84.5 fL (81-99); Mean Platelet Volume 11.3 fL (7.4-10.4); Monocytes # 0.9 10^3/uL (0.2-0.9); Monocytes % 8.1 %; Neutrophils # 6.53 10^3/uL (1.8-7.7); Neutrophils % 60.5 %; Nucleated Red Blood Cells % 0 %; Platelet Count 228 10^3/cmm (130-400); Red Blood Count 4.33 10^6/uL (4.1-5.3); Red Cell Distribution Width 13.5 % (12.1-15.1); White Blood Count 10.8 10^3/uL (4.0-10.0)
[2021-05-21 05:10] LABS: Estmated Average Glucose 103; Hemoglobin A1C 5.2 % (4.0-6.0)
[2021-05-21 05:12] LABS: Alanine Aminotransferase 13 U/L (0-33); Albumin Level 3.2 g/dL (3.5-5.2); Alkaline Phosphatase 85 IU/L (35-105); Anion Gap 14.6 (5-19); Aspartate Amino Transferase 13 U/L (0-32); Blood Urea Nitrogen 24 mg/dL (6-20); Calcium 8.2 mg/dL (8.5-10.5); Carbon Dioxide 21 mmol/L (22-29); Chloride 106 mmol/L (98-107); Glomerular Filtration Rate 17.2 mL/min (90-130); Glucose 78 mg/dL (65-115); Osmolality Calculated 287 mOsm/kg (285-295); Potassium 4.6 mmol/L (3.5-5.1); Sodium 137 mmol/L (136-145); Total Bilirubin 0.2 mg/dL (0.15-1.2); Total Protein 6.2 g/dL (6.6-8.7)
--- NOTE | 2021-05-21 05:42 | PC.NURSE ---
SHIFT SUMMARY Has rested well. No c/o nausea since episode in the evening. IV infusing without difficulty. Received Tylenol X1 for c/o back pain. Both urine and stool specimens were sent to lab [facility].
[2021-05-21] MEDS: nicotine 21 mg Patch 1 PATCH TRANSDERMA (09:06)
[2021-05-21] MEDS: pantoprazole DR 40 mg Tablet PO ×2 (09:06→19:15)
--- NOTE | 2021-05-21 09:31 | PC.RESP ---
SMOKING CESSATION INFORMATION SENT TO PATIENT.
[2021-05-21 10:28] LABS: Hepatitis A Antibody IgM Non-Reactive (Nonreactive); Hepatitis B Core AB, Total Non-Reactive (Nonreactive); Hepatitis B Surface AB 38.7 (11.5-1000); Hepatitis B Surface Antigen Non-Reactive (Nonreactive); Hepatitis C Virus Antibody Non-Reactive (Nonreactive)
[2021-05-21 10:29] LABS: HIV 1 & 2 Antibody Non-Reactive (Non-Reactiv); HIV 1 & 2 Antigen Non-Reactive (Non-Reactiv)
--- NOTE | 2021-05-21 11:02 | P.CONIM_ITS ---
Providers/Reason For Consult Consulting Physician/Specialty*: arsh lopez md / telenephrology Reason for Consult*: CATINA Attending Physician: Claudette Winn MD Primary Care Provider: Court Samson APN History of Present Illness History of Present Illness Desire Hopkins is a 26 year old female h/o obesity, GERD, recent HTN- on hctz and spironolactone. Also chronic backpain and issues- on flexeril and ibuprofen, and anti-anxiety meds. Pt here w/ n/v and admitted w/ CATINA on May 19- cr was 3.8- improved to 3.2 mg/dl w/ ivf and stopping meds. pt on a liquid diet. Pt wants to go home soon. she has PCOS and is on control. No h/o miscarriages, no blood clots. fam hx of htn, no h/o kidney disease and rheumotological disease in family. Review of Systems General: Reports: 10 or more systems reviewed and unremarkable except in HPI and below Narrative: as above - weak, nausea, abd pain, GERD, no h/a, no vision, no cp, no eye issues, + anxiety, no diarrhea Meds/Allergies Home Medications and Allergies Home Medications Medication Instructions Recorded Confirmed Last Taken Type cetirizine 10 mg PO BEDTIME 05/20/21 05/20/21 05/18/21 20:00 History cyclobenzaprine 10 mg PO TID PRN 05/20/21 05/20/21 05/18/21 20:00 History doxycycline hyclate 100 mg PO BEDTIME 05/20/21 05/20/21 05/18/21 20:00 History hydroxyzine HCl 50 mg PO TID PRN 05/20/21 05/20/21 05/18/21 20:00 History ibuprofen 800 mg PO TID PRN 05/20/21 05/20/21 05/18/21 20:00 History montelukast 10 mg PO BEDTIME 05/20/21 05/20/21 05/18/21 20:00 History norgestimate-ethinyl estradiol 1 tab PO BEDTIME 05/20/21 05/20/21 05/18/21 20:00 History [Tri-Lo-Stacey] omeprazole 20 mg PO BEDTIME 05/20/21 05/20/21 05/18/21 20:00 History spironolactone 100 mg PO BEDTIME 05/20/21 05/20/21 05/18/21 20:00 History trazodone 75 mg PO BEDTIME 05/20/21 05/20/21 05/18/21 20:00 History triamterene-hydrochlorothiazid 1 tab PO BEDTIME 05/20/21 05/20/21 05/18/21 20:00 History Allergies Allergy/AdvReac Type Severity Reaction Status Date / Time No Known Allergies Allergy Verified 05/19/21 15:48 Current Medications Current Medications Generic Name Dose Route Start Last Admin Trade Name Freq PRN Reason Stop Dose Admin Acetaminophen 650 mg 05/20/21 13:49 05/21/21 00:36 Acetaminophen 325 Mg Tablet PO 650 mg Q4H PRN Administration MILD PAIN OR INCREASE TEMP Sodium Chloride 1,000 mls @ 100 mls/hr 05/20/21 02:00 05/21/21 10:41 Sodium Chloride 0.9% IV 100 mls/hr .Q10H MI Administration Nicotine 1 patch 05/20/21 09:45 05/21/21 09:06 Nicotine 21 Mg Patch TRANSDERMA 1 patch DAILY MI Administration Ondansetron HCl 4 mg 05/20/21 01:57 05/20/21 21:39 Ondansetron 2 Mg/Ml Sdv 2 Ml IVP 4 mg Q4H PRN Administration NAUSEA AND VOMITING Pantoprazole Sodium 40 mg 05/20/21 18:00 05/21/21 09:[address] 40 Mg Tablet PO 40 mg DAILY MI Administration PFSH Acute PFSH: Medical History Anxiety Asthma PCOS (polycystic ovarian syndrome) Surgical History H/O oophorectomy Family History (Updated 05/19/21 @ 23:55 by Lelia Weeks MD) Other Cancer Social History Smoking and tobacco status: current every day smoker Female Reproductive History: Date of last menstrual period: 03/17/21 Vitals/I&O/Wt Last Vital Signs Temp 98.9 F 05/21/21 07:06 Pulse 76 05/21/21 07:06 Resp 16 05/21/21 07:06 BP 123/83 05/21/21 07:06 Pulse Ox 95 05/21/21 07:06 05/20/21 05/21/21 05/21/21 22:59 06:59 14:59 Intake Total 1176.667 / 2016.667 1165 / 3181.667 1000 / 1000 Output Total 700 / 1600 900 / 2500 Balance 476.667 / 416.667 265 / 322.772 4671 / 1000 Weight last 48 hrs Weight 127.006 kg Physical Exam Narrative: EXAM NARRATIVE: obese, VSS NARD Heent- nc/at, eomi, anemia neck - no jvp lung cta b/l heart reg, no rub, + s1, s2 abd- soft, nt, nd, +BS ext no edema neuro- a,a, o x 3 pulses+ mood - anxious Data Micro: Micro: Microbiology 05/20/21 20:22 Enteric Pathogens (PCR) - Final Stool Routine Col lection A&P Additional A&P Information 26 yr old female h/o n/v, recent htn 1. CATINA- on hctz, spironolactone, ibuprofen- and n/v- likely ATN vs prerenal azotemia -normal kidneys on ct scan -u/a 1+ ketones- no rbc or wbc- likely starvation from n/v -ur na 92 - -renal fxn improving -change ivf to LR -PPI are associated w/ CATINA and CKD- pt advised to see GI as outpt and consider EGD and decrease or stop PPI ONLY IF OKAY W/ GI -NO URINE ESOINOPHILS- to suggest interstitial nephritis -no hematuria- unlikely GN- f/u serologies -good uop and cr -if eating and drinking and cr continuing to improve, then can d/c w/ outpt renal f/u 2. bp okay - as outpt may need full HTN eval- as pt states her BP is labile 3. normal hgb 4. check phos and pth Consult Attestations Medical Necessity Statement: catina Time Spent in Patient Care: Greater than 35 minutes (>than 50% of time spent in counselling and/or direct pt care on unit) . 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
[2021-05-21] MEDS: lactated ringers 1,000 ML 100 ML IV ×2 (11:39→20:46)
[2021-05-21] MEDS: hyDROXYzine 25 mg Capsule 50 MG PO ×2 (11:39→20:49)
[2021-05-21 12:02] LABS: Phosphorus 4.1 mg/dL (2.5-4.5)
[2021-05-21 12:03] LABS: Calcium 8.2 mg/dL (8.5-10.5)
[2021-05-21 12:10] LABS: Parathyroid Hormone 79.8 pg/mL (15-65)
--- NOTE | 2021-05-21 16:43 | P.PN_ITS ---
Subjective Subjective: Interval history: Creatinine improving to 3.2 today, urine output approximately 2 L, hemodynamically stable. Nausea now resolved, patient seen eating chicken nuggets today. 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 Encourage p.o. intake, vomiting is now resolved. # CATINA likely secondary to dehydration vs multiple diuretics and NSAIDs use at home. D/c spirinolactone (For PCOS), d/c HCTZ,triamterene, will use amlodpine if needed for BP D/c ibuprofen Continue PPI given rflux Creatinine improving to 3.0, good urine output, ENMA screen sent today HbA1c normal, Covid rapid antigen negative, Check hepatitis and HIV screen. renal consult # leukocytois : resolved, was likely 2/2 dehydration Resume home medications hydroxyzine and trazodone Full code DVT prophylaxis low risk Attestations Medical Necessity Statement*: closely monitor cr and urine output, d/c in upcoming 24 hrs if continues to improve Coding Level of Care Code Acute Insurance Salesman for [facility] Fwd Diagnoses Gastroenteritis K52.9 CATINA (acute kidney injury) N17.9
[2021-05-21] MEDS: doxycycline 100 mg Tablet PO (20:40)
[2021-05-21] MEDS: trazodone 50 mg Tablet 75 MG PO (20:40)
[2021-05-22] MEDS: acetaminophen 325 mg Tablet 650 MG PO (00:37)
[2021-05-22 03:48] VITALS: BP 99/63; PULSE 76; RESP 16; TEMP 37.1; O2SAT 95
[2021-05-22 04:03] VITALS: BP 110/72
[2021-05-22 05:24] LABS: Alanine Aminotransferase 16 U/L (0-33); Alkaline Phosphatase 90 IU/L (35-105); Anion Gap 15.6 (5-19); Aspartate Amino Transferase 14 U/L (0-32); Blood Urea Nitrogen 19 mg/dL (6-20); Calcium 8.4 mg/dL (8.5-10.5); Carbon Dioxide 19 mmol/L (22-29); Chloride 108 mmol/L (98-107); Glucose 90 mg/dL (65-115); Magnesium 1.9 mg/dL (1.7-2.3); Osmolality Calculated 288 mOsm/kg (285-295); Potassium 4.6 mmol/L (3.5-5.1); Sodium 138 mmol/L (136-145); Total Bilirubin 0.2 mg/dL (0.15-1.2)
[2021-05-22] MEDS: lactated ringers 1,000 ML 100 ML IV (06:33)
[2021-05-22 06:35] LABS: 25 Hydroxy Vitamin D 20 ng/mL (30-100)
[2021-05-22 07:00] VITALS: BP 121/82; PULSE 77; RESP 18; TEMP 37; O2SAT 97
[2021-05-22 07:25] VITALS: BP 121/82; PULSE 77; RESP 18; TEMP 37; O2SAT 97
--- NOTE | 2021-05-22 08:10 | P.PN_ITS ---
Subjective Subjective: Interval history: feels better. states she can eat breakfast. ate half dinner and lunch yesterday. no vomiting. no sob. Medications: Reviewed: Yes Medication Review Details: Current Medications Acetaminophen (Acetaminophen 325 Mg Tablet) 650 mg PO Q4H PRN PRN Reason: MILD PAIN OR INCREASE TEMP Last Admin: 05/22/21 00:37 Dose: 650 mg Documented by: Doxycycline Monohydrate (Doxycycline 100 Mg Tablet) 100 mg PO BEDTIME [facility] Last Admin: 05/21/21 20:40 Dose: 100 mg Documented by: Hydroxyzine Pamoate (Hydroxyzine 25 Mg Capsule) 50 mg PO TID PRN PRN Reason: Anxiety Last Admin: 05/21/21 20:49 Dose: 50 mg Documented by: Lactated Ringer's (Lactated Ringers) 1,000 mls @ 100 mls/hr IV .Q10H [facility] Last Admin: 05/22/21 06:33 Dose: 100 mls/hr Documented by: Montelukast Sodium (Montelukast Sodium 10 Mg Tablet) 10 mg PO BEDTIME PRN PRN Reason: allergies Nicotine (Nicotine 21 Mg Patch) 1 patch TRANSDERMA DAILY [facility] Last Admin: 05/21/21 09:06 Dose: 1 patch Documented by: Ondansetron HCl (Ondansetron 2 Mg/Ml Sdv 2 Ml) 4 mg IVP Q4H PRN PRN Reason: NAUSEA AND VOMITING Last Admin: 05/20/21 21:39 Dose: 4 mg Documented by: Pantoprazole Sodium (Pantoprazole Dr 40 Mg Tablet) 40 mg PO DAILY [facility] Last Admin: 05/21/21 09:06 Dose: 40 mg Documented by: Pantoprazole Sodium (Pantoprazole Dr 40 Mg Tablet) 40 mg PO BEDTIME [facility] Last Admin: 05/21/21 19:15 Dose: 40 mg Documented by: Trazodone HCl (Trazodone 50 Mg Tablet) 75 mg PO BEDTIME [facility] Last Admin: 05/21/21 20:40 Dose: 75 mg Documented by: Vitals/I&O/Wt Last Vital Signs Temp 98.6 F 05/22/21 07:25 Pulse 77 05/22/21 07:25 Resp 18 05/22/21 07:25 BP 121/82 05/22/21 07:25 Pulse Ox 97 05/22/21 07:25 05/21/21 05/22/21 05/22/21 22:59 06:59 14:59 Intake Total 1151.667 / 2229.667 1778.333 / 4008.000 Output Total 1000 / 1000 3 / 1003 Balance 151.667 / 4858.705 6426.333 / 3005.000 Physical Exam Narrative: EXAM NARRATIVE: obese, VSS NARD Heent- nc/at, eomi, anemia neck - no jvp lung cta b/l heart reg, no rub, + s1, s2 abd- soft, nt, nd, +BS ext no edema neuro- a,a, o x 3 pulses+ mood - good no rashes noted Data : 05/21/21 04:13 05/22/21 03:51 Micro: Microbiology 05/20/21 20:22 Enteric Pathogens (PCR) - Final Stool Routine Collection Parasite Antigen Panel - Final A&P Additional A&P Information 26 yr old female h/o n/v, recent htn 1. CATINA- on hctz, spironolactone, ibuprofen at home. She presented w/ n/v and CATINA likely ATN vs prerenal azotemia -normal kidneys on ct scan -u/a 1+ ketones- no rbc or wbc- likely starvation from n/v -ur na 92 - -renal fxn improving -can d/c ivf -PPI are associated w/ CATINA and CKD- pt advised to see GI as outpt and consider EGD and decrease or stop PPI ONLY IF OKAY W/ GI -NO URINE ESOINOPHILS- to suggest interstitial nephritis -no hematuria- unlikely GN- f/u serologies -good uop and cr -normal ck - can d/c pt home w/ outpt renal f/u -NO ALDACTONE, IBUPROFEN, AND HCTZ ON D/C- CAN HAVE DAILY flexeril -f/u serologies- needs outpt f/u 2. bp okay - as outpt may need re-eval- currently off meds 3. normal hgb 4. mild met acidosis- repeat chem 7 in a week as outpt 5. normal phos 6. vit d repletion -repeat vit d and pth level after vit d repleted- 50,000 units weekly x 8 seen and examined w/ rN- telehealth visit Attestations Medical Necessity Statement*: improving catina Time Spent in Patient Care: 16 - 35 minutes Coding Level of Care Code Acute Emergency Service Restorer for Bart Barrera
[2021-05-22] MEDS: pantoprazole DR 40 mg Tablet PO (08:45)
[2021-05-22] MEDS: nicotine 21 mg Patch 1 PATCH TRANSDERMA (08:45)
[2021-05-22 11:36] VITALS: BP 121/82; PULSE 77; RESP 18; TEMP 37; O2SAT 97
--- NOTE | 2021-05-22 17:41 | P.DS_ITS ---
Discharge Providers Date of Admission: 05/20/21 20:21 Date of Discharge: May 22, 2021 Attending Provider at Admission: Lelia Weeks MD Attending Provider at Discharge: Claudette Winn MD Primary Care Provider: Court Samson APN Diagnoses at Discharge Discharge Diagnosis (1) Gastroenteritis: Status: Acute (2) CATINA (acute kidney injury): Status: Acute Reason for Visit Reason for Visit: NAUSEA/VOMITING Hospital Course Hospital Course Desire Hopkins is a 26 year old female h/o obesity, GERD, recent HTN- on hctz and spironolactone. Also chronic backpain and issues- on flexeril and ibuprofen, and anti-anxiety meds. Pt here with nausea and vomiting and admitted with CATINA on May 19- cr was 3.8- improved to 3.2 mg/dl w/ivf and stopping nephrotoxic meds. she has PCOS and is on control. No h/o miscarriages, no blood clots. family hx of htn, no h/o kidney disease and rheumotological disease in family. Likely patient had ATN vs prerenal azotemia from excessive vomiting. normal kidneys on ct scan. Her BP remained in range. HCTZ-triamterene d/c. If needed, recommend amlodipine as outpatient- f/up with PCP. Stopped spirinolactone for acne and PCOS- recommend f/up with dermatology to consider alternatives. referral provided. NSAIDS stopped- recommended tylenol and lidocaine patches for pain, tramadol only for breakthrough pain. patient needs f.up with PCP in 3-4 days for rpt cr check. Also needs f/up with nephrology as outpatient- she wishes to get referral from PCP to find provider accepting [place] medicaid. Tolerating po intake very well st discharge, Physical Exam Narrative: EXAM NARRATIVE: GEN: Awake, alert and oriented, no acute distress CVS: S1S2 N RS: CTA B/L Abd: Soft, nt/nd , bs+ [employer]: no focal neuro deficits Discharge Data Data Completed and Pending: Completed Studies During Hospitalization Category Date Time Status CT abdomen pelvis wo con [id number] Urge nt Cat Scan 05/19/21 18:40 Completed Pending at discharge Category Date Time Status ENMA Profile Rheum atology AM LABS Lab 05/21/21 04:13 Received Vitamin D 1,25 Di hydroxy Routine Lab 05/21/21 04:13 Received Labs from last 24 hours 05/22/21 03:51 Sodium 138 Potassium 4.6 Chloride 108 H Carbon Dioxide 19 L Anion Gap 15.6 BUN 19 Creatinine 2.7 H GFR Calculation 21.0 L Glucose 90 Calculated Osmolal ity 288 Calcium 8.4 L Magnesium 1.9 Total Bilirubin 0.2 AST 14 ALT 16 Alkaline Phosphata se 90 Total Protein 6.0 L Albumin 3.0 L Globulin 3.0 25-OH Vitamin D To colin 20 L Vitals: Last Vital Signs Temp 98.6 F 05/22/21 11:36 Pulse 77 05/22/21 11:36 Resp 18 05/22/21 11:36 BP 121/82 05/22/21 11:36 Pulse Ox 97 05/22/21 11:36 Discharge Plan Discharge Patient Disposition: Home Condition: Stable Prescriptions: New tramadol 50 mg tablet 50 mg PO Q12H PRN (Reason: pain) 7 Days Qty: 14 RF: 0 lidocaine 4 % adhesive patch,medicated 1 patch topical DAILY PRN (Reason: pain) Qty: 10 RF: 0 Continued doxycycline hyclate 100 mg Capsule 100 mg PO BEDTIME RF: 0 trazodone 50 mg Tablet 75 mg PO BEDTIME RF: 0 cetirizine 10 mg Tablet 10 mg PO BEDTIME RF: 0 hydroxyzine HCl 50 mg Tablet 50 mg PO TID PRN (Reason: Anxiety) RF: 0 omeprazole 20 mg Capsule,Delayed Release(Dr/Ec) 20 mg PO BEDTIME RF: 0 montelukast 10 mg Tablet 10 mg PO BEDTIME RF: 0 Tri-Lo-Stacey 0.18/0.215/0.25 mg-25 mcg Tablet 1 tab PO BEDTIME RF: 0 Discontinued ibuprofen 800 mg Tablet 800 mg PO TID PRN (Reason: Pain) RF: 0 spironolactone 100 mg Tablet 100 mg PO BEDTIME RF: 0 triamterene-hydrochlorothiazid 37.5-25 mg Tablet 1 tab PO BEDTIME RF: 0 cyclobenzaprine 5 mg tablet 10 mg PO TID PRN (Reason: muscle spasm) RF: 0 Discharge Orders: Discharge Order (Routine); Ordered 05/22/21 Ordered By: Claudette Winn Referrals: Deedee Schmidt DO [Physician] - 2 weeks (Please call Monday to schedule a follow up appointment.) Court Samson APN [Primary Care Provider] - 4-7 days (Please call Monday to schedule a follow up appointment) Discharge Diet: Advance as tolerated Discharge Activity: Resume usual activity Patient Instructions: Lidocaine (On the skin), Tramadol (By mouth), Acute Kidney Injury (DC), Gastroenteritis (GEN), Opioid Safety Discharge Attestations Time Spent in Discharge Care*: less than 30 min Quality Metrics Clinical Quality Measures During this hospital stay, did patient experience: None Coding Level of Care Code Acute Chg FW DC note Diagnoses Gastroenteritis K52.9 CATINA (acute kidney injury) N17.9
[2021-05-27 09:21] LABS: COMPLEMENT COMPONENT C3C 132 mg/dL (83-193); COMPLEMENT COMPONENT C4C 26 mg/dL (15-57); COMPLEMENT, TOTAL (CH50) >60 U/mL (31-60)
[2021-05-27 09:22] LABS: ANA SCREEN, IFA NEGATIVE (NEGATIVE); CENTROMERE B ANTIBODY <1.0 NEG AI (<1.0 NEG); JO-1 ANTIBODY <1.0 NEG AI (<1.0 NEG); RNP ANTIBODY <1.0 NEG AI (<1.0 NEG); SCL-70 ANTIBODY <1.0 NEG AI (<1.0 NEG); SJOGREN'S ANTIBODY (SS-A) <1.0 NEG AI (<1.0 NEG); SM ANTIBODY <1.0 NEG AI (<1.0 NEG); SS-B <1.0 NEG AI (<1.0 NEG); THYROID PEROXIDASE ANTIBODIES 1 IU/mL (<9)
[2021-05-27 14:43] LABS: Vit D 1,25 (Oh)2, Total 19 pg/mL (18-72); Vit D2 1,25 (Oh)2 <8 pg/mL; Vit D3 1,25 (Oh)2 19 pg/mL
[2021-05-28 22:38] LABS: DNA AB (DS) CRITHIDIA,IFA NEGATIVE (NEGATIVE)
== END 2021-05-22 11:37 | disposition home or self-care (01) | DRG 391 ==
LOC: ER 20:50 → MEDSURG 22:58
PROVIDERS: Internal Medicine Nephrology; Physician Assistant; Admitting Provider Internal Medicine; Emergency Provider Family Medicine; PCP Nurse Practitioner Family; Visit Provider Student in an Organized Health Care Education/Training Program
DX: K52.9 Noninfective gastroenteritis and colitis, unspecified (principal); N17.0 Acute kidney failure with tubular necrosis; Z68.41 Body mass index [BMI] 40.0-44.9, adult; E86.0 Dehydration; F12.90 Cannabis use, unspecified, uncomplicated; F41.9 Anxiety disorder, unspecified; J45.909 Unspecified asthma, uncomplicated; E28.2 Polycystic ovarian syndrome; F17.210 Nicotine dependence, cigarettes, uncomplicated; A05.9 Bacterial foodborne intoxication, unspecified; E66.9 Obesity, unspecified; I10 Essential (primary) hypertension; G89.29 Other chronic pain; M54.9 Dorsalgia, unspecified; Z79.891 Long term (current) use of opiate analgesic
CPT/HCPCS: 36415; 74176; 80048; 80053; 80306; 81001; 82306; 82310; 82436; 82550; 82570; 82652; 83036; 83605; 83690; 83735; 83970; 84100; 84133; 84300; 84703; 85025; 86160; 86162; 86235; 86255; 86376; 86705; 86706; 86709; 86803; 87340; 87426; 87506; 87806; 96361; 96374; 99285; G0378; J1170; J2405; J7030

== ENCOUNTER → 2024-02-07 11:03 | Outpatient (BNVA) | payer OTHER, SELFPAY | PROVIDERS: PCP Nurse Practitioner Family; Visit Provider Nurse Practitioner Family | DX: R76.12 Nonspecific reaction to cell mediated immunity measurement of gamma interferon antigen response without active tuberculosis (principal) | CPT/HCPCS: 71046 ==